=== PATIENT | female | born 1995 | race Asian ===

== ENCOUNTER 2017-05-06 15:54 | Emergency (ER) | payer OTHER ==
[~2017-05-06] VITALS: Ht 152.4 cm; Wt 59.4 kg
[2017-05-06 16:00] VITALS: TEMP 36.8; Ht 152.4 cm; Wt 59.4 kg
[2017-05-06] MEDS ORDERED: AMOX500C3 PO (16:40)
[2017-05-06 17:06] LABS: HEMATOCRIT 38.1 % (37-47); HEMOGLOBIN 13.5 g/dL (12.0-16.0); MEAN CELL VOLUME 85.6 fL (80-100); MEAN CORPUSCULAR HEMOGLOBIN 30.3 pg (25-34); MEAN CORPUSCULAR HGB CONC 35.4 g/dl (32-36); MEAN PLATELET VOLUME 9.8 fL (7.4-10.4); PLATELET COUNT 104 K/uL (130-400); RED CELL DISTRIBUTION WIDTH CV 11.8 % (11.5-14.5); RED CELL DISTRIBUTION WIDTH SD 37.1 fL (36.4-46.3); WHITE BLOOD COUNT 5.72 K/uL (4.8-10.8)
[2017-05-06 17:28] LABS: ALBUMIN 4.1 gm/dl (3.4-5.0); ALT/SGPT 23 U/L (12-78); AST/SGOT 19 U/L (15-37); BLOOD UREA NITROGEN 5 mg/dl (7-18); CALCIUM 9.2 mg/dl (8.5-10.1); CARBON DIOXIDE 28 mmol/L (21-32); CREATININE 0.56 mg/dl (0.60-1.20); GLUCOSE 97 mg/dl (70-99); POTASSIUM 3.6 mmol/L (3.5-5.1); SODIUM 140 mmol/L (136-145)
[2017-05-06 17:31] LABS: ALKALINE PHOSPHATASE 58 U/L (45-117); TOTAL PROTEIN 7.9 gm/dl (6.4-8.2)
[2017-05-06 18:00] VITALS: BP 114/56; PULSE 59; O2SAT 100
--- NOTE | 2017-05-06 23:21 | EMERGENCY ROOM VISIT NOTE ---
History Report prepared by Beti: Deena Parsons Under the Supervision of: Dr. Carl Stovall M.D. First contact with patient: 16:14 Chief Complaint: RASH Stated Complaint: RASHS History of Present Illness The patient is a 21 year old female who presents to the Emergency Room with complaints of a worsening rash starting 3 days ago. The rash started on her face and chest. It has spread to her back. She describes the rash as itchy red spots. She has some spots on her arms and legs, but they are not itchy. The rash is not painful. She does not have any rash on her palms or soles. She has been scratching at the rash. Before the rash started, she had felt uncomfortable. She felt like she could not feel her arms and legs and she was fatigued. She felt hot, but did not have a fever. She does not feel fatigued or feverish any more. She denies any fever, vomiting, rhinorrhea, cough, or sore throat. She went to [facility] yesterday and had a negative flu swab. She was told that she has a flu like illness. She had the rash when she went to [facility], but it was not as severe. She denies being in contact with anyone with a rash. She denies any recent travel, motel stays, or camping. Her immunizations are up to date. Source of History: patient Onset: 3 days ago Position: other (global) Quality: other (rash) Timing: worsening Associated Symptoms: + fatigue (resolved), + numbness (resolved), No fevers , No sorethroat, No cough, No vomiting Note: Pt denies rhinorrhea. Review of Systems See HPI for pertinent positives & negatives. A total of 10 systems reviewed and were otherwise negative. Past Medical & Surgical No significant past medical history. Family History No pertinent family history stated. Social History Smoking Status: Never Smoker Occupation Status: [employer] Current/Historical Medications Scheduled Amoxicillin (Amoxil), 2 CAP PO HS Allergies Coded Allergies: No Known Allergies (Unverified , 05/06/17) Physical Exam Vital Signs Date Time Temp Pulse Resp B/P (MAP) Pulse Ox O2 Delivery O2 Flow Rate FiO2 05/06/17 18:00 59 18 114/56 100 Room Air 05/06/17 16:00 36.8 78 18 121/74 99 Room Air Physical Exam Constitutional: Vital signs reviewed. Eyes: Pupils are equal round reactive to light. Conjunctiva are noninjected. ENT: Pharynx is clear without erythema or exudate. Mucous membranes are moist. Neck supple without meningeal signs. Respiratory: Clear to auscultation bilaterally. Breath sounds are equal bilaterally. Cardiovascular: Regular rate and rhythm. No rubs or gallops. GI: Soft, nondistended and nontender. Bowel sounds are present. Musculoskeletal: No peripheral edema. No lower extremity tenderness. Integumentary: Scattered papular excoriated lesions to the trunk and proximal extremities. No lesions on the palms or soles. Greatest concentration of lesions over the face. No petechiae, purpura, or bulla. No mucosal lesions. No [place] spots. Neurological: The patient is awake and alert. No focal deficits. Psychiatric: Normal affect. Medical Decision & Procedures Laboratory Results 05/06/17 16:45 Red Blood Count 4.45, Mean Corpuscular Volume 85.6, Mean Corpuscular Hemoglobin 30.3, Mean Corpuscular Hemoglobin Concent 35.4, Mean Platelet Volume 9.8 05/06/17 16:45 Test 05/06/17 16:45 White Blood Count 5.72 K/uL (4.8-10.8) Red Blood Count 4.45 M/uL (4.2-5.4) Hemoglobin 13.5 g/dL (12.0-16.0) Hematocrit 38.1 % (37-47) Mean Corpuscular Volume 85.6 fL (80-100) Mean Corpuscular Hemoglobin 30.3 pg (25-34) Mean Corpuscular Hemoglobin Concent 35.4 g/dl (32-36) Platelet Count 104 K/uL (130-400) Mean Platelet Volume 9.8 fL (7.4-10.4) RDW Standard Deviation 37.1 fL (36.4-46.3) RDW Coefficient of Variation 11.8 % (11.5-14.5) Neutrophils % (Manual) 36.9 % Lymphocytes % (Manual) 21.9 % Variant Lymphocytes % (manual) 29.8 % Monocytes % (Manual) 8.8 % Basophils % (Manual) 2.6 % Neutrophils # (Manual) 2.11 K/uL (1.4-6.5) Total Absolute Neutrophils 2.11 K/uL (1.4-6.5) Lymphocytes # (Manual) 1.25 K/uL (1.2-3.4) Absolute Variant Lymphocytes 1.70 K/uL Total Absolute Lymphocytes 2.96 K/uL (1.2-3.4) Monocytes # (Manual) 0.50 K/uL (0.11-0.59) Basophils # (Manual) 0.15 K/uL (0-0.2) Anion Gap 5.0 mmol/L (3-11) Est Creatinine Clear Calc Drug Dose 130.2 ml/min Estimated GFR () > 150.0 Estimated GFR (Non- 135.2 BUN/Creatinine Ratio 9.4 (10-20) Calcium Level 9.2 mg/dl (8.5-10.1) Total Bilirubin 0.7 mg/dl (0.2-1) Direct Bilirubin 0.1 mg/dl (0-0.2) Aspartate Amino Transf (AST/SGOT) 19 U/L (15-37) Alanine Aminotransferase (ALT/SGPT) 23 U/L (12-78) Alkaline Phosphatase 58 U/L (45-117) Total Protein 7.9 gm/dl (6.4-8.2) Albumin 4.1 gm/dl (3.4-5.0) Laboratory results as reviewed by me. Medications Administered Medications (Trade) Dose Ordered Sig/Luli Route Start Time Stop Time Status Last Admin Dose Admin Diphenhydramine HCl (Benadryl Cap) 50 mg NOW ONCE PO 05/06/17 16:30 05/06/17 16:31 DC 05/06/17 16:52 50 MG ED Course 1616: The patient was evaluated in room B4B. A complete history and physical exam was performed. 1630: Benadryl Cap 50 mg PO. 1804: Upon reevaluation, the patient feels less itchy after the Benadryl. I discussed rojelio's findings with her. She verbalized agreement of the treatment plan. She was discharged home. Medical Decision This is a 21-year-old female who presents with a rash. Differential diagnosis includes viral exanthem, scabies, measles, rash NOS, pityriasis. I did perform a limited focused review of portions of the patient's old chart on the electronic medical record. The patient has had no prior visits to this hospital. I did evaluate the patient as noted above. The patient is presenting with a pruritic rash over her trunk and face. She did state that she felt unwell prior to this but has no symptoms currently. She denies any coryza or cough or conjunctivitis. She has no signs of measles. She does not appear systemically ill at this time. IV access was established. I did order and review the patient's blood work as noted in the electronic medical record. I did treat her with Benadryl 50 mg orally. I did reassess the patient. Her itching is improved. At this time the cause of her symptoms is unclear. I did recommend she follow with [facility] and/or dermatology. She was discharged in good condition. Medication Reconcilliation Current Medication List: was personally reviewed by me Blood Pressure Screening Patient's blood pressure: Elevated blood pressure Blood pressure disposition: Elevated BP felt to be situational Impression Primary Impression: Rash Scribe Attestation The scribe's documentation has been prepared under my direct and personally reviewed by me in its entirety. I confirm that the note above accurately reflects all work, treatment, procedures, and medical decision making performed by me. Departure Information Dispostion Home / Self-Care Referrals No Doctor, Assigned (PCP) Forms HOME CARE DOCUMENTATION FORM, IMPORTANT VISIT INFORMATION, WORK / SCHOOL INSTRUCTIONS Patient Instructions My [facility] Additional Instructions You have been examined and treated today on an emergency basis only. This is not a substitute for, or an effort to provide, complete comprehensive medical care. It is impossible to recognize and treat all injuries or illnesses in a single emergency department visit. It is therefore important that you follow up closely with your physician. Call as soon as possible for an appointment. Return for worsening symptoms or if you develop fever, vomiting, blisters in your mouth or any other concerning symptoms.
== END 2017-05-06 18:12 | disposition home or self-care (01) ==
LOC: C.EDB 15:55
DX: R21 Rash and other nonspecific skin eruption (principal)